=== PATIENT | male | born 1980 | race Caucasian/White ===

== ENCOUNTER 2021-09-20 19:09 | Emergency (ER) | payer BC ==
[~2021-09-20] VITALS: Ht 165.1 cm; Wt 78.5 kg
--- NOTE | 2021-09-20 19:09 | NUR ---
Patient triaged and placed in waiting room. VSS and patient appears in no acute distress at this time. Accompanied by self , awaiting available bed, and MD notified of need for MSE.
--- NOTE | 2021-09-20 19:10 | NUR ---
Pt brought by self, A&Ox4, pt presents to ER with abdominal pain radiating to the back/ also c/o diarrhea, no vomiting noted, skin pink and warm, cap refill <3.
[2021-09-20 19:44] VITALS: BP_SYST 144
--- NOTE | 2021-09-20 20:10 | NUR ---
Dr Levy evaluating patient in the triage room
[2021-09-20 20:24] LABS: BASOPHILS # (AUTO) 0.1 K/uL (0.0-0.2); BASOPHILS % (AUTO) 0.8 % (0.0-2.0); EOSINOPHILS # (AUTO) 0.1 K/uL (0.0-0.4); EOSINOPHILS % (AUTO) 1.4 % (0.0-4.0); HEMATOCRIT 50.9 % (36-54); HEMOGLOBIN 18.1 g/dL (14.0-18.0); LYMPHOCYTES # (AUTO) 1.9 K/uL (1.0-5.5); LYMPHOCYTES % (AUTO) 23.1 % (20.5-51.5); MEAN CORPUSCULAR HEMOGLOBIN 32 pg (27-31); MEAN CORPUSCULAR HGB CONC 36 % (32-36); MEAN CORPUSCULAR VOLUME 91 fL (79.0-98.0); MONOCYTES # (AUTO) 0.8 K/uL (0.0-1.0); MONOCYTES % (AUTO) 9.4 % (1.7-9.3); NEUTROPHILS # (AUTO) 5.3 K/uL (1.8-7.7); NEUTROPHILS % (AUTO) 65.3 % (40.0-70.0); PLATELET COUNT (AUTO) 176 K/uL (130-430); RED BLOOD CELL COUNT(AUTO) 5.57 MIL/uL (4.2-6.2); WHITE BLOOD COUNT (AUTO) 8.1 K/uL (4.8-10.8)
[2021-09-20 20:37] LABS: CALCIUM 8.1 mg/dL (8.4-11.0); CREATININE 1.01 mg/dL (0.55-1.30); POTASSIUM 3.7 mmol/L (3.5-5.1)
[2021-09-20 20:42] LABS: ALBUMIN 3.7 g/dL (3.4-4.8); TOTAL BILIRUBIN 0.4 mg/dL (0.0-1.0)
[2021-09-20] MEDS ORDERED: SULF1TAB48 PO (20:57)
--- NOTE | 2021-09-20 21:02 | NUR ---
Patient given written and verbal discharge instructions and verbalizes understanding. ER MD discussed with patient the results and treatment provided. Patient in stable condition. ID arm band removed. Rx of Bactrim given. Patient educated on pain management and to follow up with PMD. Pain Scale 2/10. Opportunity for questions provided and answered. Medication side effect fact sheet provided.
[2021-09-20 21:18] VITALS: BP_SYST 144
== END 2021-09-20 21:02 | disposition home or self-care (01) ==
LOC: SED 19:09
DX: R19.7 Diarrhea, unspecified (principal); R79.89 Other specified abnormal findings of blood chemistry; Z79.899 Other long term (current) drug therapy
CPT/HCPCS: 36415; 76376; 80053; 83605; 85025; 87040; 99284

== ENCOUNTER 2022-01-23 21:16 | Emergency (ER) | payer BC ==
[~2022-01-23] VITALS: Ht 165.1 cm; Wt 75.7 kg
[~2022-01-23 21:16] MED LIST: SULF1TAB48 PO
[2022-01-23 21:22] VITALS: BP_SYST 157
--- NOTE | 2022-01-23 21:25 | NUR ---
PATIENT STATES HE HAS BEEN SOB AND DIZZY FOR A COUPLE HOURS, EXTREMELY ANXIOUS AT THIS TIME. STATES HE HAS PAIN IN PELVIS (BEING SEEN FOR CHRONIC STOMACH ISSUES)
--- NOTE | 2022-01-23 22:01 | NUR ---
DEX Braga at bedside examining patient.
[2022-01-23 22:03] LABS: BASOPHILS # (AUTO) 0.1 K/uL (0.0-0.2); BASOPHILS % (AUTO) 0.8 % (0.0-2.0); EOSINOPHILS # (AUTO) 0.2 K/uL (0.0-0.4); EOSINOPHILS % (AUTO) 2.7 % (0.0-4.0); HEMATOCRIT 48.3 % (36-54); HEMOGLOBIN 17.2 g/dL (14.0-18.0); LYMPHOCYTES # (AUTO) 2.6 K/uL (1.0-5.5); LYMPHOCYTES % (AUTO) 35.2 % (20.5-51.5); MEAN CORPUSCULAR HEMOGLOBIN 32 pg (27-31); MEAN CORPUSCULAR HGB CONC 36 % (32-36); MEAN CORPUSCULAR VOLUME 91 fL (79.0-98.0); MONOCYTES # (AUTO) 0.7 K/uL (0.0-1.0); MONOCYTES % (AUTO) 8.9 % (1.7-9.3); NEUTROPHILS # (AUTO) 3.9 K/uL (1.8-7.7); NEUTROPHILS % (AUTO) 52.4 % (40.0-70.0); PLATELET COUNT (AUTO) 194 K/uL (130-430); WHITE BLOOD COUNT (AUTO) 7.5 K/uL (4.8-10.8)
[2022-01-23 22:10] LABS: ANION GAP 9 (5-15); CALCIUM 9.1 mg/dL (8.4-11.0); CHLORIDE 102 mmol/L (98-107); CREATININE 1.19 mg/dL (0.55-1.30); GFR AFRICAN AMERICAN 86 mL/min (>90); GLUCOSE 122 mg/dL (70-99); POTASSIUM 3.6 mmol/L (3.5-5.1); UREA NITROGEN, BLOOD 11 mg/dL (8-21)
[2022-01-23 22:18] LABS: ALANINE AMINOTRANSFERASE 91 U/L (12-78); ASPARTATE AMINOTRANSFERASE 35 U/L (10-37); TOTAL BILIRUBIN 0.4 mg/dL (0.0-1.0)
--- NOTE | 2022-01-23 22:59 | NUR ---
PATIENT BROUGHT TO BED FOUR FOR EVAL AND REPORT GIVEN TO TERRI AVITIA.
[2022-01-24] MEDS ORDERED: MAG HYDROX/AL HYDROX/SIMETH 30 ML, LIDOCAINE VISCOUS 2% 15ML (PO) 15 ML, DICYCLOMINE HC... PO ONE ×3 (00:15)
[2022-01-24] MEDS ORDERED: NACL 0.9% 1,000 ML IV ONE ×2 (00:30)
[2022-01-24] MEDS ORDERED: cefTRIAXone 1 GM in D5W 50 ML IV ONE (03:15)
[2022-01-24] MEDS ORDERED: cefTRIAXone 1 GM VIAL ONE (04:21)
[2022-01-24] MEDS ORDERED: CIPR500T5 PO (05:59)
[2022-01-24 06:11] LABS: BILIRUBIN,URINE NEGATIVE (NEGATIVE); BLOOD, URINE NEGATIVE (NEGATIVE); CLARITY/URINE CLEAR (CLEAR); COLOR,URINE YELLOW (YELLOW); GLUCOSE,URINE NEGATIVE (NEGATIVE); KETONES,URINE NEGATIVE (NEGATIVE); LEUKOCYTE ESTERASE ,URINE NEGATIVE (NEGATIVE); NITRITE, URINE NEGATIVE (NEGATIVE); PROTEIN URINE NEGATIVE (NEGATIVE); UROBILINOGEN,URINE 0.2 (0.2-1.0)
--- NOTE | 2022-01-24 06:46 | NUR ---
Patient given written and verbal discharge instructions and verbalizes understanding. ER MD discussed with patient the results and treatment provided. Patient in stable condition. ID arm band removed. IV catheter removed intact and dressing applied, no active bleeding. Rx of CIPRO given. Patient educated on pain management and to follow up with PMD. Pain Scale 0. Opportunity for questions provided and answered. Medication side effect fact sheet provided.
[2022-01-24 06:56] VITALS: BP_SYST 133
== END 2022-01-24 06:46 | disposition home or self-care (01) ==
LOC: SED 21:16
DX: K57.90 Diverticulosis of intestine, part unspecified, without perforation or abscess without bleeding (principal); K29.50 Unspecified chronic gastritis without bleeding; N30.90 Cystitis, unspecified without hematuria; K62.5 Hemorrhage of anus and rectum; R10.13 Epigastric pain; R11.0 Nausea; K21.9 Gastro-esophageal reflux disease without esophagitis; E78.5 Hyperlipidemia, unspecified; Z79.899 Other long term (current) drug therapy
CPT/HCPCS: 99285; 71045; 80053; 83880; 83690; 85025; 84484; 36415; 93005; 81003; 74176; 96365; 96361; 76376; J2001; J0696; J7060; J7030

== ENCOUNTER 2023-03-20 19:13 | Emergency (ER) | payer BC ==
[~2023-03-20] VITALS: Ht 167.6 cm; Wt 77.1 kg
[~2023-03-20 19:13] MED LIST changes: +CIPR500T5 PO
[2023-03-20 19:35] VITALS: BP_SYST 113; PULSE 90; RESP 16; TEMP 97.6; O2SAT 98
[2023-03-20 20:14] LABS: BILIRUBIN,URINE NEGATIVE (NEGATIVE); BLOOD, URINE NEGATIVE (NEGATIVE); CLARITY/URINE CLEAR (CLEAR); COLOR,URINE YELLOW (YELLOW); GLUCOSE,URINE NEGATIVE (NEGATIVE); KETONES,URINE TRACE (NEGATIVE); LEUKOCYTE ESTERASE ,URINE NEGATIVE (NEGATIVE); NITRITE, URINE NEGATIVE (NEGATIVE); PROTEIN URINE 1+ (NEGATIVE); UROBILINOGEN,URINE 0.2 (0.2-1.0)
[2023-03-20 20:23] LABS: BASOPHILS # (AUTO) 0.1 K/uL (0.0-0.2); BASOPHILS % (AUTO) 0.5 % (0.0-2.0); EOSINOPHILS # (AUTO) 0.1 K/uL (0.0-0.4); EOSINOPHILS % (AUTO) 1.4 % (0.0-4.0); HEMATOCRIT 51.6 % (36-54); HEMOGLOBIN 17.4 g/dL (14.0-18.0); LYMPHOCYTES # (AUTO) 2.4 K/uL (1.0-5.5); LYMPHOCYTES % (AUTO) 22.5 % (20.5-51.5); MEAN CORPUSCULAR HEMOGLOBIN 31 pg (27-31); MEAN CORPUSCULAR HGB CONC 34 % (32-36); MEAN CORPUSCULAR VOLUME 92 fL (79.0-98.0); MONOCYTES # (AUTO) 1.1 K/uL (0.0-1.0); MONOCYTES % (AUTO) 10.2 % (1.7-9.3); NEUTROPHILS # (AUTO) 6.9 K/uL (1.8-7.7); NEUTROPHILS % (AUTO) 65.4 % (40.0-70.0); PLATELET COUNT (AUTO) 205 K/uL (130-430); RED BLOOD CELL COUNT(AUTO) 5.61 MIL/uL (4.2-6.2); RED CELL DISTRIBUTION WIDTH 12.8 % (9.0-15.0); WHITE BLOOD COUNT (AUTO) 10.5 K/uL (4.8-10.8)
[2023-03-20 20:30] LABS: CALCIUM 8.6 mg/dL (8.4-11.0); CREATININE 1.14 mg/dL (0.55-1.30); POTASSIUM 3.8 mmol/L (3.5-5.1)
[2023-03-20] MEDS ORDERED: KETOROLAC TROMETHAMINE 30 MG VIAL IVP ONE (20:30)
[2023-03-20] MEDS ORDERED: NACL 0.9% 1,000 ML IV ONE (20:30)
[2023-03-20] MEDS ORDERED: ONDANSETRON HCL 4 MG/2 ML VIAL IVP ONE (20:30)
[2023-03-20 20:34] LABS: ALBUMIN 3.8 g/dL (3.4-4.8); BILIRUBIN,DIRECT 0.1 mg/dL (0.0-0.3); TOTAL BILIRUBIN 0.5 mg/dL (0.0-1.0); TOTAL PROTEIN, SERUM 7.7 g/dL (6.4-8.3)
[2023-03-20] MEDS ORDERED: metroNIDAZOLE 500 mg/NS 100 ML IV ONE (20:45)
[2023-03-20] MEDS ORDERED: SULFAMETHOXAZOLE/TRIMETHOPR DS 1 TABLET PO ONE (20:45)
[2023-03-20 20:57] LABS: BACTERIA,URINE FEW /HPF (None Seen); RBC,URINE 0-3 /HPF (0-3); WBC,URINE 0-3 /HPF (0-3)
[2023-03-20] MEDS ORDERED: METR-154 PO ×2 (21:53→23:49)
[2023-03-20] MEDS ORDERED: ONDA-8 TL ×2 (21:53→23:49)
[2023-03-20] MEDS ORDERED: SULF1TAB48 PO ×2 (21:53→23:49)
[2023-03-20] MEDS ORDERED: IBUP-1971 PO (21:53)
[2023-03-20 23:25] VITALS: BP_SYST 128; PULSE 88; RESP 16; TEMP 98.4
[2023-03-20] MEDS ORDERED: ACET-2634 PO (23:49)
== END 2023-03-20 23:26 | disposition home or self-care (01) ==
LOC: SED 19:13
DX: K57.92 Diverticulitis of intestine, part unspecified, without perforation or abscess without bleeding (principal); K21.9 Gastro-esophageal reflux disease without esophagitis; Z79.899 Other long term (current) drug therapy
CPT/HCPCS: 99285; 74176; 96365; 96375; 80076; 80048; 81001; 83690; 85025; 87040; 36415; 76376; J1885; J3490; J2405; J7030; 81000; 81015